=== PATIENT | female | born 1950 ===

== ENCOUNTER → 2017-12-14 | Emergency (ER) | payer OTHER ==
[~2017-12-14] VITALS: Ht 162.6 cm; Wt 101.6 kg
[~2017-12-14] MED LIST: COZAAR25 MG; DEXILANT60 MG; GLIMEPIRIDE2 MG; MOTRIN800 MG PO; VYTORIN 10-40 M1 TAB; [UNRECOGNIZED DRUG - OTHER]
== END | disposition home or self-care (01) ==
LOC: ER 14:11
DX: B34.9 Viral infection, unspecified (principal)

== ENCOUNTER 2018-12-04 15:54 | Emergency (ER) | payer OTHER ==
[~2018-12-04] VITALS: Ht 162.6 cm; Wt 106.1 kg
[2018-12-04] MEDS ORDERED: JANUVIA25 MG (16:35)
[2018-12-04] MEDS ORDERED: HYZAAR 100-12.1 EACH (16:36)
[2018-12-04] MEDS ORDERED: [UNRECOGNIZED DRUG - OTHER] (16:36)
== END 2018-12-04 18:26 | disposition home or self-care (01) ==
LOC: ER 15:54
DX: J11.1 Influenza due to unidentified influenza virus with other respiratory manifestations (principal)

== ENCOUNTER 2019-08-15 10:13 | Outpatient (CLI) | payer OTHER ==
[~2019-08-15 10:13] MED LIST changes: +HYZAAR 100-12.1 EACH; +JANUVIA25 MG; +[UNRECOGNIZED DRUG - OTHER]
== END 2019-08-15 15:35 | disposition home or self-care (01) ==
LOC: TOM 10:13
DX: K57.33 Diverticulitis of large intestine without perforation or abscess with bleeding (principal)

== ENCOUNTER 2020-04-30 09:52 | Outpatient (CLI) | payer OTHER | END 2020-04-30 09:56 | disposition home or self-care (01) | LOC: NUCLEAR 09:52 | PROVIDERS: ATTEND Internal Medicine | DX: R00.0 Tachycardia, unspecified (principal); R00.2 Palpitations ==

== ENCOUNTER 2021-04-10 16:00 | Emergency (ER) | payer OTHER ==
[~2021-04-10] VITALS: Ht 162.6 cm; Wt 98.9 kg
[2021-04-11] MEDS ORDERED: PROTONIX40 MG PO (10:12)
[2021-04-11] MEDS ORDERED: DICY20TA PO (10:12)
[2021-04-11] MEDS ORDERED: SIMETHICONE80 MG PO (10:13)
[2021-04-11] MEDS ORDERED: QUESTRAN PACKET4 GM PO (10:13)
== END 2021-04-11 12:04 | disposition home or self-care (01) ==
LOC: ER 16:00
DX: R19.7 Diarrhea, unspecified (principal); R10.32 Left lower quadrant pain; B34.9 Viral infection, unspecified; R53.1 Weakness